=== PATIENT | female | born 2000 | race Asian ===

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

== ENCOUNTER 2023-10-18 03:23 | Emergency (ER) | payer OTHER ==
[2023-10-18 03:28] VITALS: RESP 18; BMI 31.6
[2023-10-18] MEDS: ONDANSETRON 4 MG TABLET PO ONE (03:53)
[2023-10-18 04:48] LABS: THROAT:GRP A STREP NOT DETECTED (NOTDETECTED)
[2023-10-18] MEDS ORDERED: ACETAMINOPHEN 325 MG TABLET (FP) ONE (06:55)
[2023-10-18] MEDS: ACETAMINOPHEN 500 MG TABLET (FP) PO ONE (06:59)
[2023-10-18 07:28] VITALS: BP 120/70; PULSE 95; TEMP 100.1
== END 2023-10-18 08:21 | disposition home or self-care (01) ==
LOC: JER 03:23
DX: A08.4 Viral intestinal infection, unspecified (principal); R11.2 Nausea with vomiting, unspecified; R53.1 Weakness; R51.9 Headache, unspecified; Z20.822 Contact with and (suspected) exposure to COVID-19
CPT/HCPCS: 0241U-QW; 87651; 99283-25